=== PATIENT | female | born 1980 | race Asian ===

== ENCOUNTER 2024-06-18 07:38 | Day surgery (SDC) | payer BC ==
[2024-06-17 12:57] VITALS: BMI 32.5
[2024-06-18 07:54] VITALS: TEMP 97.9
[2024-06-18 09:38] VITALS: BP 116/73; PULSE 79; RESP 19
== END 2024-06-18 09:40 | disposition home or self-care (01) ==
LOC: FASU-ENDO 07:38
PROVIDERS: ATTEND Internal Medicine Gastroenterology
PROC: 0DBN8ZX Excision of Sigmoid Colon, Via Natural or Artificial Opening Endoscopic, Diagnostic (ICD-10-PCS; 2024-06-18)
PROC: 0DBK8ZX Excision of Ascending Colon, Via Natural or Artificial Opening Endoscopic, Diagnostic (ICD-10-PCS; principal; 2024-06-18 08:45)
DX: Z12.11 Encounter for screening for malignant neoplasm of colon (principal); D12.2 Benign neoplasm of ascending colon; K63.5 Polyp of colon; K57.30 Diverticulosis of large intestine without perforation or abscess without bleeding
CPT/HCPCS: 81025; 88305-TC